=== PATIENT | male | born 1975 | race Asian ===

== ENCOUNTER → 2018-06-15 | Outpatient (CLI) | payer OTHER | LOC: M OUTALCOH 11:58 | PROVIDERS: ATTEND Psychiatry & Neurology Psychiatry | DX: Z00.8 Encounter for other general examination (principal) ==

== ENCOUNTER 2018-07-07 16:00 | Outpatient (RCR) | payer OTHER | END 2018-07-09 | LOC: M OUTALCOH 16:00 | PROVIDERS: ATTEND Psychiatry & Neurology Psychiatry | DX: F10.10 Alcohol abuse, uncomplicated (principal); F17.200 Nicotine dependence, unspecified, uncomplicated ==

== ENCOUNTER 2018-08-05 15:00 | Outpatient (RCR) | payer OTHER | END 2018-08-06 | LOC: M OUTALCOH 15:00 | PROVIDERS: ATTEND Psychiatry & Neurology Psychiatry | DX: F10.10 Alcohol abuse, uncomplicated (principal); F17.200 Nicotine dependence, unspecified, uncomplicated ==

== ENCOUNTER 2018-09-02 15:00 | Outpatient (RCR) | payer OTHER | END 2018-09-06 | LOC: M OUTALCOH 15:00 | PROVIDERS: ATTEND Psychiatry & Neurology Psychiatry | DX: F10.10 Alcohol abuse, uncomplicated (principal); F17.200 Nicotine dependence, unspecified, uncomplicated ==

== ENCOUNTER 2018-10-02 07:57 | Outpatient (RCR) | payer OTHER | END 2018-10-06 | LOC: M OUTALCOH 07:57 | PROVIDERS: ATTEND Psychiatry & Neurology Psychiatry | DX: F10.10 Alcohol abuse, uncomplicated (principal); F17.200 Nicotine dependence, unspecified, uncomplicated ==

== ENCOUNTER 2018-10-30 08:55 | Outpatient (RCR) | payer OTHER | END 2018-11-06 | LOC: M OUTALCOH 08:55 | PROVIDERS: ATTEND Psychiatry & Neurology Psychiatry | DX: F10.10 Alcohol abuse, uncomplicated (principal); F17.200 Nicotine dependence, unspecified, uncomplicated ==

== ENCOUNTER 2018-11-27 07:52 | Outpatient (RCR) | payer OTHER | END 2018-12-06 | LOC: M OUTALCOH 07:52 | PROVIDERS: ATTEND Psychiatry & Neurology Psychiatry | DX: F10.10 Alcohol abuse, uncomplicated (principal); F17.200 Nicotine dependence, unspecified, uncomplicated ==

== ENCOUNTER 2018-12-09 14:17 | Outpatient (RCR) | payer OTHER | END 2019-01-06 | LOC: M OUTALCOH 14:17 | PROVIDERS: ATTEND Psychiatry & Neurology Psychiatry | DX: F10.10 Alcohol abuse, uncomplicated (principal); F17.200 Nicotine dependence, unspecified, uncomplicated ==

== ENCOUNTER 2019-01-13 10:53 | Outpatient (RCR) | payer OTHER | END 2019-02-06 | LOC: M OUTALCOH 10:53 | PROVIDERS: ATTEND Psychiatry & Neurology Psychiatry | DX: F10.10 Alcohol abuse, uncomplicated (principal); F17.200 Nicotine dependence, unspecified, uncomplicated ==

== ENCOUNTER 2019-02-23 14:07 | Outpatient (RCR) | payer OTHER | END 2019-03-08 | LOC: M OUTALCOH 14:07 | PROVIDERS: ATTEND Psychiatry & Neurology Psychiatry | DX: F10.10 Alcohol abuse, uncomplicated (principal); F17.200 Nicotine dependence, unspecified, uncomplicated ==

== ENCOUNTER 2019-03-25 13:56 | Outpatient (RCR) | payer OTHER | END 2019-04-08 | LOC: M OUTALCOH 13:56 | PROVIDERS: ATTEND Psychiatry & Neurology Psychiatry | DX: F10.10 Alcohol abuse, uncomplicated (principal); F17.200 Nicotine dependence, unspecified, uncomplicated ==

== ENCOUNTER 2019-05-04 13:05 | Outpatient (RCR) | payer OTHER | END 2019-05-08 | LOC: M OUTALCOH 13:05 | PROVIDERS: ATTEND Psychiatry & Neurology Psychiatry | DX: F10.10 Alcohol abuse, uncomplicated (principal); F17.200 Nicotine dependence, unspecified, uncomplicated ==

== ENCOUNTER 2019-06-15 13:02 | Outpatient (RCR) | payer OTHER | END 2019-07-09 | LOC: M OUTALCOH 13:02 | PROVIDERS: ATTEND Psychiatry & Neurology Psychiatry | DX: F10.10 Alcohol abuse, uncomplicated (principal); F17.200 Nicotine dependence, unspecified, uncomplicated ==

== ENCOUNTER 2019-07-20 12:46 | Outpatient (RCR) | payer OTHER | END 2019-08-07 | LOC: M OUTALCOH 12:46 | PROVIDERS: ATTEND Psychiatry & Neurology Psychiatry | DX: F10.10 Alcohol abuse, uncomplicated (principal); F17.200 Nicotine dependence, unspecified, uncomplicated ==

== ENCOUNTER 2019-08-31 12:55 | Outpatient (RCR) | payer OTHER | END 2019-09-07 | LOC: M OUTALCOH 12:55 | PROVIDERS: ATTEND Psychiatry & Neurology Addiction Medicine | DX: F10.10 Alcohol abuse, uncomplicated (principal); F17.200 Nicotine dependence, unspecified, uncomplicated ==

== ENCOUNTER 2019-10-12 14:13 | Outpatient (RCR) | payer OTHER | END 2019-11-07 | LOC: M OUTALCOH 14:13 | PROVIDERS: ATTEND Psychiatry & Neurology Addiction Medicine | DX: F10.10 Alcohol abuse, uncomplicated (principal); F17.200 Nicotine dependence, unspecified, uncomplicated ==

== ENCOUNTER 2019-11-16 14:44 | Outpatient (RCR) | payer OTHER | END 2019-12-07 | LOC: M OUTALCOH 14:44 | PROVIDERS: ATTEND Counselor Addiction (Substance Use Disorder) | DX: F10.10 Alcohol abuse, uncomplicated (principal); F17.200 Nicotine dependence, unspecified, uncomplicated ==

== ENCOUNTER 2019-12-14 13:05 | Outpatient (RCR) | payer OTHER | END 2020-01-07 | LOC: M OUTALCOH 13:05 | PROVIDERS: ATTEND Psychiatry & Neurology Addiction Medicine | DX: F10.10 Alcohol abuse, uncomplicated (principal); F17.200 Nicotine dependence, unspecified, uncomplicated ==

== ENCOUNTER 2020-02-01 13:00 | Outpatient (RCR) | payer OTHER | END 2020-02-07 | LOC: M OUTALCOH 13:00 | PROVIDERS: ATTEND Psychiatry & Neurology Addiction Medicine | DX: F10.10 Alcohol abuse, uncomplicated (principal); F17.200 Nicotine dependence, unspecified, uncomplicated ==

== ENCOUNTER 2020-03-21 13:05 | Outpatient (RCR) | payer OTHER | END 2020-04-08 | LOC: M OUTALCOH 13:05 | PROVIDERS: ATTEND Psychiatry & Neurology Addiction Medicine | DX: F10.10 Alcohol abuse, uncomplicated (principal); F17.200 Nicotine dependence, unspecified, uncomplicated ==

== ENCOUNTER 2020-05-02 14:38 | Outpatient (RCR) | payer OTHER | END 2020-05-08 | LOC: M OUTALCOH 14:38 | PROVIDERS: ATTEND Psychiatry & Neurology Addiction Medicine | DX: F10.10 Alcohol abuse, uncomplicated (principal); F17.200 Nicotine dependence, unspecified, uncomplicated ==

== ENCOUNTER 2020-06-06 12:38 | Outpatient (RCR) | payer OTHER | END 2020-06-08 | LOC: M OUTALCOH 12:38 | PROVIDERS: ATTEND Psychiatry & Neurology Addiction Medicine | DX: F10.10 Alcohol abuse, uncomplicated (principal); F17.200 Nicotine dependence, unspecified, uncomplicated ==

== ENCOUNTER 2020-07-18 13:00 | Outpatient (RCR) | payer OTHER | END 2020-08-06 | LOC: M OUTALCOH 13:00 | PROVIDERS: ATTEND Counselor Addiction (Substance Use Disorder) | DX: F10.10 Alcohol abuse, uncomplicated (principal); F17.200 Nicotine dependence, unspecified, uncomplicated ==

== ENCOUNTER 2020-08-29 12:51 | Outpatient (RCR) | payer OTHER | END 2020-09-06 | LOC: M OUTALCOH 12:51 | PROVIDERS: ATTEND Psychiatry & Neurology Psychiatry | DX: F10.10 Alcohol abuse, uncomplicated (principal); F17.200 Nicotine dependence, unspecified, uncomplicated ==

== ENCOUNTER 2020-10-10 12:54 | Outpatient (RCR) | payer OTHER | END 2020-11-06 | LOC: M OUTALCOH 12:54 | PROVIDERS: ATTEND Psychiatry & Neurology Psychiatry | DX: F10.10 Alcohol abuse, uncomplicated (principal); F17.200 Nicotine dependence, unspecified, uncomplicated ==

== ENCOUNTER 2020-11-14 13:00 | Outpatient (RCR) | payer OTHER | END 2020-12-06 | LOC: M OUTALCOH 13:00 | PROVIDERS: ATTEND Psychiatry & Neurology Psychiatry | DX: F10.10 Alcohol abuse, uncomplicated (principal); F17.200 Nicotine dependence, unspecified, uncomplicated ==

== ENCOUNTER 2020-12-19 16:00 | Outpatient (RCR) | payer OTHER | END 2021-01-06 | LOC: M OUTALCOH 16:00 | PROVIDERS: ATTEND Psychiatry & Neurology Psychiatry | DX: F10.10 Alcohol abuse, uncomplicated (principal); F17.200 Nicotine dependence, unspecified, uncomplicated ==

== ENCOUNTER 2021-01-30 14:00 | Outpatient (RCR) | payer OTHER | END 2021-02-06 | LOC: M OUTALCOH 14:00 | PROVIDERS: ATTEND Psychiatry & Neurology Psychiatry | DX: F10.10 Alcohol abuse, uncomplicated (principal); F17.200 Nicotine dependence, unspecified, uncomplicated ==

== ENCOUNTER 2021-03-13 13:42 | Outpatient (RCR) | payer OTHER | END 2021-04-08 | LOC: M OUTALCOH 13:42 | PROVIDERS: ATTEND Psychiatry & Neurology Psychiatry | DX: F10.10 Alcohol abuse, uncomplicated (principal); F17.200 Nicotine dependence, unspecified, uncomplicated ==

== ENCOUNTER 2021-04-24 13:46 | Outpatient (RCR) | payer OTHER | END 2021-05-08 | LOC: M OUTALCOH 13:46 | PROVIDERS: ATTEND Psychiatry & Neurology Psychiatry | DX: F10.10 Alcohol abuse, uncomplicated (principal); F17.200 Nicotine dependence, unspecified, uncomplicated ==

== ENCOUNTER 2021-06-12 13:51 | Outpatient (RCR) | payer OTHER | END 2021-07-09 | LOC: M OUTALCOH 13:51 | PROVIDERS: ATTEND Psychiatry & Neurology Psychiatry | DX: F10.10 Alcohol abuse, uncomplicated (principal); F17.200 Nicotine dependence, unspecified, uncomplicated ==

== ENCOUNTER 2021-07-17 13:58 | Outpatient (RCR) | payer OTHER | END 2021-08-06 | LOC: M OUTALCOH 13:58 | PROVIDERS: ATTEND Psychiatry & Neurology Psychiatry | DX: F10.10 Alcohol abuse, uncomplicated (principal); F17.200 Nicotine dependence, unspecified, uncomplicated ==

== ENCOUNTER 2021-08-28 13:56 | Outpatient (RCR) | payer OTHER | END 2021-09-06 | LOC: M OUTALCOH 13:56 | PROVIDERS: ATTEND Psychiatry & Neurology Psychiatry | DX: F10.10 Alcohol abuse, uncomplicated (principal); F17.200 Nicotine dependence, unspecified, uncomplicated ==

== ENCOUNTER 2021-10-05 13:54 | Outpatient (RCR) | payer OTHER | END 2021-10-06 | LOC: M OUTALCOH 13:54 | PROVIDERS: ATTEND Psychiatry & Neurology Psychiatry | DX: F10.10 Alcohol abuse, uncomplicated (principal); F17.200 Nicotine dependence, unspecified, uncomplicated ==

== ENCOUNTER 2021-11-09 15:00 | Outpatient (RCR) | payer OTHER | END 2021-12-06 | LOC: M OUTALCOH 15:00 | PROVIDERS: ATTEND Psychiatry & Neurology Psychiatry | DX: F10.10 Alcohol abuse, uncomplicated (principal); F17.200 Nicotine dependence, unspecified, uncomplicated ==

== ENCOUNTER 2021-12-14 13:52 | Outpatient (RCR) | payer OTHER | END 2022-01-06 | LOC: M OUTALCOH 13:52 | PROVIDERS: ATTEND Psychiatry & Neurology Psychiatry | DX: F10.10 Alcohol abuse, uncomplicated (principal); F17.200 Nicotine dependence, unspecified, uncomplicated ==

== ENCOUNTER 2022-02-01 13:56 | Outpatient (RCR) | payer OTHER | END 2022-02-06 | LOC: M OUTALCOH 13:56 | PROVIDERS: ATTEND Psychiatry & Neurology Psychiatry | DX: F10.10 Alcohol abuse, uncomplicated (principal); F17.200 Nicotine dependence, unspecified, uncomplicated ==

== ENCOUNTER 2022-03-15 13:41 | Outpatient (RCR) | payer OTHER | END 2022-04-08 | LOC: M OUTALCOH 13:41 | PROVIDERS: ATTEND Psychiatry & Neurology Psychiatry | DX: F10.10 Alcohol abuse, uncomplicated (principal); F17.200 Nicotine dependence, unspecified, uncomplicated ==

== ENCOUNTER 2022-04-19 13:38 | Outpatient (RCR) | payer OTHER | END 2022-05-08 | LOC: M OUTALCOH 13:38 | PROVIDERS: ATTEND Psychiatry & Neurology Psychiatry | DX: F10.10 Alcohol abuse, uncomplicated (principal); F17.200 Nicotine dependence, unspecified, uncomplicated ==

== ENCOUNTER 2022-05-23 14:06 | Outpatient (RCR) | payer OTHER | END 2022-06-08 | LOC: M OUTALCOH 14:06 | PROVIDERS: ATTEND Psychiatry & Neurology Psychiatry | DX: F10.10 Alcohol abuse, uncomplicated (principal); F17.200 Nicotine dependence, unspecified, uncomplicated ==

== ENCOUNTER 2022-07-11 13:38 | Outpatient (RCR) | payer OTHER | END 2022-08-06 | LOC: M OUTALCOH 13:38 | PROVIDERS: ATTEND Psychiatry & Neurology Psychiatry | DX: F10.10 Alcohol abuse, uncomplicated (principal); F17.200 Nicotine dependence, unspecified, uncomplicated ==

== ENCOUNTER 2022-08-22 13:33 | Outpatient (RCR) | payer OTHER | END 2022-09-06 | LOC: M OUTALCOH 13:33 | PROVIDERS: ATTEND Psychiatry & Neurology Psychiatry | DX: F10.10 Alcohol abuse, uncomplicated (principal); F17.200 Nicotine dependence, unspecified, uncomplicated ==

== ENCOUNTER 2022-09-26 15:38 | Outpatient (RCR) | payer OTHER | END 2022-10-06 | LOC: M OUTALCOH 15:38 | PROVIDERS: ATTEND Psychiatry & Neurology Psychiatry | DX: F10.10 Alcohol abuse, uncomplicated (principal); F17.200 Nicotine dependence, unspecified, uncomplicated ==

== ENCOUNTER 2022-10-31 13:55 | Outpatient (RCR) | payer OTHER | END 2022-11-06 | LOC: M OUTALCOH 13:55 | PROVIDERS: ATTEND Psychiatry & Neurology Psychiatry | DX: F10.10 Alcohol abuse, uncomplicated (principal); F17.200 Nicotine dependence, unspecified, uncomplicated ==

== ENCOUNTER 2022-12-12 13:57 | Outpatient (RCR) | payer OTHER | END 2023-01-06 | LOC: M OUTALCOH 13:57 | PROVIDERS: ATTEND Psychiatry & Neurology Psychiatry | DX: F10.10 Alcohol abuse, uncomplicated (principal); F17.200 Nicotine dependence, unspecified, uncomplicated ==

== ENCOUNTER 2023-01-23 13:29 | Outpatient (RCR) | payer OTHER | END 2023-02-06 | LOC: M OUTALCOH 13:29 | PROVIDERS: ATTEND Psychiatry & Neurology Psychiatry | DX: F10.10 Alcohol abuse, uncomplicated (principal); F17.200 Nicotine dependence, unspecified, uncomplicated ==